=== PATIENT | male | born 1980 | race Hispanic/Latino ===

== ENCOUNTER 2018-07-11 10:17 | Emergency (ER) | payer MEDICAID, OTHER ==
[2018-07-11] MEDS ORDERED: KETOROLAC TROMETHAMINE 30MG/ML ONE ×2 (11:26→11:28)
[2018-07-11] MEDS ORDERED: DEXAMETHASONE SOD PHOSPHATE 10MG/ML 1ML VIAL ONE ×2 (11:26→11:27)
== END 2018-07-11 11:49 | disposition home or self-care (01) ==
LOC: EDH 10:17
DX: M54.41 Lumbago with sciatica, right side (principal)
CPT/HCPCS: 96372 ×2; 99283; J1100; J1885